=== PATIENT | female | born 1965 | race Caucasian/White ===

== ENCOUNTER 2017-05-06 22:05 | Emergency (ER) | payer OTHER ==
[2017-05-06 22:21] VITALS: BP 144/78; PULSE 59; TEMP 98.4; BMI 25.0
--- NOTE | 2017-05-06 22:44 | PDOC ---
History of Present Illness - General History Source: Patient Exam Limitations: No Limitations - History of Present Illness Initial Comments: 05/06/17 22:54 The patient is a 51 year old female with a significant PMH of diabetes, HTN, hypothyroidism, kidney stones who presents to the emergency department with dysuria, hematuria, and suprapubic pain beginning this afternoon. The patient reports a sudden onset of suprapubic pain followed by dysuria and associated blood in her urine just prior to arrival. She denies fevers or chills. She denies nausea, vomiting, or diarrhea. She reports her last LMP was when she was 47 years old. The patient denies chest pain, shortness of breath, headache, and dizziness. Denies urinary frequency, urgency, or incontinence. Denies hematochezia or constipation. Allergies: NKA Past surgical history: Fibroid removal. Social history: No reported cigarette, alcohol, or drug use. PCP: On [place] [facility]. <Michele Sanford - Last Filed: 05/06/17 22:58> - General History Source: Patient <Jorge Valverde - Last Filed: 05/06/17 23:20> - General Chief Complaint: Hematuria Stated Complaint: BLOOD IN URINE Time Seen by Provider: 05/06/17 22:42 Past History <iMchele Sanford - Last Filed: 05/06/17 22:58> - Past Medical History COPD: No Diabetes: Yes HTN: Yes Thyroid Disease: Yes - Surgical History Abdominal Surgery: Yes ("fibroids") - Immunization History Immunization Up to Date: Yes - Suicide/Smoking/Psychosocial Hx Smoking History: Never smoked Have you smoked in the past 12 months: No Number of Cigarettes Smoked Daily: 2 Information on smoking cessation initiated: No Hx Alcohol Use: No Drug/Substance Use Hx: No Substance Use Type: None <Jorge Valverde - Last Filed: 05/06/17 23:20> - Past Medical History Allergies/Adverse Reactions: Allergies Allergy/AdvReac Type Severity Reaction Status Date / Time No Known Allergies Allergy Verified 12/28/15 15:44 Home Medications: Ambulatory Orders No Home Medications 0 dose .ROUTE UTDICT 02/05/13 Ondansetron [Zofran Odt -] 4 mg SL TID PRN #21 od.tablet 02/06/13 Cyclobenzaprine HCl [Flexeril] 10 mg PO Q8H PRN #15 tablet 01/17/14 traMADol HCL [Ultram] 50 mg PO Q6H PRN #30 tablet 01/17/14 Phenazopyridine HCl [Pyridium -] 100 mg PO PC #6 tablet 05/06/17 levoFLOXacin [Levaquin -] 500 mg PO DAILY #7 tablet 05/06/17 Review of Systems - Review of Systems Able to Perform ROS?: Yes Comments:: 05/06/17 23:00 CONSTITUTIONAL: Absent: fever, chills, diaphoresis, generalized weakness, malaise, loss of appetite HEENT: Absent: rhinorrhea, nasal congestion, throat pain, throat swelling, difficulty swallowing, mouth swelling, ear pain, eye pain, visual Changes CARDIOVASCULAR: Absent: chest pain, syncope, palpitations, irregular heart rate, lightheadedness , peripheral edema RESPIRATORY: Absent: cough, shortness of breath, dyspnea with exertion, orthopnea, wheezing, stridor, hemoptysis GASTROINTESTINAL: Absent: abdominal pain, abdominal distension, nausea, vomiting, diarrhea, constipation, melena, hematochezia GENITOURINARY: (+) Dysuria. (+) Hematuria. (+) Suprapubic pain. Absent: frequency, urgency, hesitancy, flank pain, genital pain MUSCULOSKELETAL: Absent: myalgia, arthralgia, joint swelling SKIN: Absent: rash, itching, pallor HEMATOLOGIC/IMMUNOLOGIC: Absent: easy bleeding, easy bruising, lymphadenopathy, frequent infections ENDOCRINE: Absent: unexplained weight gain, unexplained weight loss, heat intolerance, cold intolerance NEUROLOGIC: Absent: headache, focal weakness or paresthesias, dizziness, unsteady gait, seizure, mental status changes, bladder or bowel incontinence PSYCHIATRIC: Absent: anxiety, depression, suicidal or homicidal ideation, hallucinations. <Michele Sanford - Last Filed: 05/06/17 22:58> *Physical Exam - Vital Signs Last Vital Signs Temp Pulse Resp BP Pulse Ox 98.4 F 59 L 18 144/78 100 05/06/17 22:19 05/06/17 22:19 05/06/17 22:19 05/06/17 22:19 05/06/17 22:19 - Physical Exam Comments: 05/06/17 23:00 GENERAL: Well developed, well nourished. Awake and alert. No acute distress. HEENT: Normocephalic, atraumatic. PERRLA, EOMI. No conjunctival pallor. Sclera are non- icteric. Moist mucous membranes. Oropharynx is clear. NECK: Supple. Full ROM. No JVD. Carotid pulses 2+ and symmetric, without bruits. No thyromegaly. No lymphadenopathy. CARDIOVASCULAR: Regular rate and rhythm. No murmurs, rubs, or gallops. Distal pulses are 2+ and symmetric. PULMONARY: No evidence of respiratory distress. Lungs clear to auscultation bilaterally. No wheezing, rales or rhonchi. ABDOMINAL: (+) Suprapubic tenderness. Soft. Non-distended. No rebound or guarding. No organomegaly. Normoactive bowel sounds. MUSCULOSKELETAL Normal range of motion at all joints. No bony deformities or tenderness. No CVA tenderness. EXTREMITIES: No cyanosis. No clubbing. No edema. No calf tenderness. SKIN: Warm and dry. Normal capillary refill. No rashes. No jaundice. NEUROLOGICAL: Alert, awake, appropriate. Cranial nerves 2-12 intact. No deficits to light touch and temperature in face, upper extremities and lower extremities. No motor deficits in the in face, upper extremities and lower extremities. Normoreflexic in the upper and lower extremities. Normal speech. Toes are downgoing bilaterally. Gait is normal without ataxia. PSYCHIATRIC: Cooperative. Good eye contact. Appropriate mood and affect. <Michele Sanford - Last Filed: 05/06/17 22:58> - Vital Signs Last Vital Signs Temp Pulse Resp BP Pulse Ox 98.4 F 59 L 18 144/78 100 05/06/17 22:19 05/06/17 22:19 05/06/17 22:19 05/06/17 22:19 05/06/17 22:19 <Jorge Valverde - Last Filed: 05/06/17 23:20> Medical Decision Making - Medical Decision Making 05/06/17 23:17 Dr. Valverde: The scribe's documentation has been prepared under my direction and personally reviewed by me in its entirery. I confirm that the note above accurately reflects all work, treatment, procedures, and medical decision making performed by me. <Jorge Valverde - Last Filed: 05/06/17 23:20> *DC/Admit/Observation/Transfer - Attestations Scribe Attestion: 05/06/17 23:00 Documentation prepared by Michele Sanford, acting as biomedical manager for Jorge Valverde DO. <Michele Sanford - Last Filed: 05/06/17 22:58> - Discharge Dispostion Admit: No <Jorge Valverde - Last Filed: 05/06/17 23:20> Diagnosis at time of Disposition: UTI (urinary tract infection) Qualifiers: Urinary tract infection type: acute cystitis Hematuria presence: with hematuria Qualified Code(s): N30.01 - Acute cystitis with hematuria - Discharge Dispostion Disposition: HOME Condition at time of disposition: Stable - Prescriptions Prescriptions: levoFLOXacin [Levaquin -] 500 mg PO DAILY #7 tablet Phenazopyridine HCl [Pyridium -] 100 mg PO PC #6 tablet - Referrals Referrals: Kyaw Naranjo MD., MD [Staff Physician] - - Patient Instructions Printed Discharge Instructions: DI for Urinary Tract Infection (UTI), DI for Acute Cystitis
[2017-05-06] MEDS ORDERED: PHENAZOPYRIDINE HCL 100 MG TABLET (FP) PO STA (22:45)
[2017-05-06] MEDS ORDERED: PHENAZOPYRIDINE HCL 100 MG TABLET (FP) ONE (22:57)
[2017-05-06 23:07] LABS: URINE APPEARANCE CLOUDY; URINE BILIRUBIN NEGATIVE (NEGATIVE); URINE BLOOD 3+ (NEGATIVE); URINE COLOR AMBER; URINE GLUCOSE (UA) NEGATIVE (NEGATIVE); URINE KETONE NEGATIVE (NEGATIVE); URINE NITRITE NEGATIVE (NEGATIVE); URINE UROBILINOGEN NEGATIVE mg/dL (0.2-1.0)
[2017-05-06 23:11] LABS: URINE LEUK ESTERASE 3+ (NEGATIVE); URINE PROTEIN 2+ (NEGATIVE)
[2017-05-06 23:14] LABS: EPI CELLS RARE /HPF (FEW); YEAST MANY
== END 2017-05-06 23:20 | disposition home or self-care (01) ==
LOC: JER 22:05
DX: N30.01 Acute cystitis with hematuria (principal); I10 Essential (primary) hypertension; E11.9 Type 2 diabetes mellitus without complications; E03.9 Hypothyroidism, unspecified; Z87.442 Personal history of urinary calculi
CPT/HCPCS: 81003; 81015; 87086; 87186; 99281-25

== ENCOUNTER 2021-07-31 08:14 | Emergency (ER) | payer OTHER ==
[2021-07-31 08:34] VITALS: BMI 25.0
[2021-07-31] MEDS ORDERED: ACETAMINOPHEN 500 MG TABLET (FP) PO ONE (09:20)
[2021-07-31] MEDS ORDERED: ACETAMINOPHEN 325 MG TABLET (FP) ONE (09:25)
[2021-07-31] MEDS ORDERED: SODIUM CHLORIDE 0.9% 500 ML INFUS.BAG IV ONE (09:37)
[2021-07-31 11:22] VITALS: BP 111/66; PULSE 67; TEMP 99.4
[2021-07-31 11:37] LABS: BASO % 0.5 % (0-2.0); EOS % 0.1 % (0-4.5); HEMATOCRIT 37.4 % (32.4-45.2); HEMOGLOBIN 12.4 GM/dL (10.7-15.3); LYMPH % 7.1 % (8-40); MCH 28.3 pg (25.7-33.7); MCHC 33.1 g/dl (32.0-36.0); MEAN CELL VOLUME 85.8 fl (80-96); MONO % 10.1 % (3.8-10.2); NEUT % 82.2 % (42.8-82.8); PLATELET COUNT 328 10^3/uL (134-434); RBC 4.36 M/mm3 (3.60-5.2); RDW 13.7 % (11.6-15.6); WHITE BLOOD COUNT 13.4 K/mm3 (4.0-10.0)
[2021-07-31 12:01] LABS: ALBUMIN 3.3 g/dl (3.4-5.0); BLOOD UREA NITROGEN 9.5 mg/dL (7-18); CALCIUM 9.1 mg/dL (8.5-10.1)
[2021-07-31 12:04] LABS: CREATININE 0.7 mg/dL (0.55-1.3)
[2021-07-31 12:06] LABS: BILIRUBIN,TOTAL 0.8 mg/dL (0.2-1); TOT PROT 6.9 g/dl (6.4-8.2)
== END 2021-07-31 12:23 | disposition home or self-care (01) ==
LOC: JER 08:14
DX: R53.1 Weakness (principal); Z20.822 Contact with and (suspected) exposure to COVID-19
CPT/HCPCS: 0241U-QW; 36415; 71045-TC-FY; 80053; 85025; 93005; 93010; 99285-25

== ENCOUNTER 2021-11-13 10:01 | Inpatient (IN) | payer OTHER ==
[2021-11-13] MEDS ORDERED: ACETAMINOPHEN 1000 MG/100 ML BAG IVPB ONE (11:43)
[2021-11-13] MEDS ORDERED: MAG HYDROX/AL HYDROX/SIMETH 30 ML UNIT-DOSE CUP PO ONE (11:43)
[2021-11-13] MEDS ORDERED: FAMOTIDINE 20 MG/50 ML IVPB 20 MG/50 ML MG IVPB ONE ×2 (11:43→12:09)
[2021-11-13] MEDS ORDERED: SUCRALFATE 1 GM TABLET (FP) PO ONE (11:43)
[2021-11-13] MEDS ORDERED: SUCRALFATE 1 GM TABLET (FP) ONE (12:08)
[2021-11-13] MEDS ORDERED: ACETAMINOPHEN INJECTION 100 ML IVPB ONE (12:08)
[2021-11-13] MEDS ORDERED: MAG HYDROX/AL HYDROX/SIMETH 30 ML UNIT-DOSE CUP ONE (12:08)
[2021-11-13 12:22] LABS: BASO % 0.4 % (0-2.0); HEMATOCRIT 37.6 % (32.4-45.2); HEMOGLOBIN 12.1 GM/dL (10.7-15.3); MCH 27.2 pg (25.7-33.7); MCHC 32.2 g/dl (32.0-36.0); MEAN CELL VOLUME 84.5 fl (80-96); MEAN PLT VOLUME 7.6 fl (7.5-11.1); MONO % 9.3 % (3.8-10.2); NEUT % 84.3 % (42.8-82.8); PLATELET COUNT 357 10^3/uL (134-434); RBC 4.44 M/mm3 (3.60-5.2); RDW 15.7 % (11.6-15.6)
[2021-11-13 12:46] LABS: CALCIUM 9.1 mg/dL (8.5-10.1)
[2021-11-13 12:47] LABS: ALBUMIN 3.3 g/dl (3.4-5.0); BLOOD UREA NITROGEN 7.4 mg/dL (7-18)
[2021-11-13 12:50] LABS: CREATININE 0.8 mg/dL (0.55-1.3)
[2021-11-13 12:51] LABS: BILIRUBIN,TOTAL 1.1 mg/dL (0.2-1)
[2021-11-13 12:52] LABS: TOT PROT 7.4 g/dl (6.4-8.2)
[2021-11-13 15:18] LABS: EPI CELLS 2 /uL (0-25.1); HYALINE CASTS 11 /uL (0-3.1); PH,URINE 6.5 (5.0-8.0); URINE APPEARANCE CLEAR; URINE BACTERIA >9,000 /uL (0-1359); URINE BILIRUBIN NEGATIVE (NEGATIVE); URINE COLOR YELLOW; URINE GLUCOSE (UA) NEGATIVE (NEGATIVE); URINE KETONE 2+ (NEGATIVE); URINE LEUK ESTERASE 2+ (NEGATIVE); URINE NITRITE POSITIVE (NEGATIVE); URINE PROTEIN TRACE (NEGATIVE); URINE RBC 45 /uL (0-23.9); URINE WBC 773 /uL (0-25.8)
[2021-11-13] MEDS ORDERED: CEFTRIAXONE 1 GM in DEXTROSE 5%-WATER - 50 ML IVPB ONE (15:37)
[2021-11-13] MEDS ORDERED: CEFTRIAXONE 1 GM/50 ML BAG ONE (16:14)
[2021-11-13] MEDS ORDERED: ONDANSETRON 4 MG/2 ML VIAL IVPUSH PRN (18:11)
[2021-11-13] MEDS ORDERED: SODIUM CHLORIDE 2,041 ML IV ONE (18:46)
[2021-11-13] MEDS ORDERED: ACETAMINOPHEN 325 MG TABLET (FP) ONE (21:12)
[2021-11-13] MEDS: ACETAMINOPHEN 325 MG TABLET (FP) PO PRN (21:28)
[2021-11-14 00:25] VITALS: BMI 26.8
[2021-11-14] MEDS: SODIUM CHLORIDE 1,000 ML IV SCH ×3 (08:50→22:01)
[2021-11-14] MEDS: KETOROLAC TROMETHAMINE 15 MG/ML VIAL IVPUSH PRN ×2 (08:51→19:59)
[2021-11-14] MEDS: ENOXAPARIN NA (PORCINE) 40 MG/0.4 ML DISP.SYRIN SQ SCH (09:53)
[2021-11-14] MEDS ORDERED: CEFTRIAXONE 1 GM in DEXTROSE 5%-WATER - 50 ML IVPB SCH (10:00)
[2021-11-14] MEDS: LEVOTHYROXINE NA 50 MCG TABLET (FP) PO SCH (11:31)
[2021-11-14] MEDS: PANTOPRAZOLE 40 MG TABLET PO SCH (11:32)
[2021-11-14 11:43] LABS: BASO % 0.3 % (0-2.0); EOS % 0.1 % (0-4.5); HEMATOCRIT 31.9 % (32.4-45.2); LYMPH % 10.7 % (8-40); MCH 29.1 pg (25.7-33.7); MCHC 34.4 g/dl (32.0-36.0); MEAN CELL VOLUME 84.7 fl (80-96); MEAN PLT VOLUME 7.8 fl (7.5-11.1); MONO % 11.5 % (3.8-10.2); NEUT % 77.4 % (42.8-82.8); PLATELET COUNT 293 10^3/uL (134-434); RBC 3.76 M/mm3 (3.60-5.2); RDW 15.5 % (11.6-15.6); WHITE BLOOD COUNT 10.9 K/mm3 (4.0-10.0)
[2021-11-14 12:17] LABS: ALBUMIN 2.7 g/dl (3.4-5.0); CALCIUM 8.2 mg/dL (8.5-10.1); MAGNESIUM 2.3 mg/dL (1.8-2.4)
[2021-11-14 12:20] LABS: CREATININE 0.7 mg/dL (0.55-1.3); PHOSPHOROUS 1.5 mg/dL (2.5-4.9)
[2021-11-14 12:22] LABS: BILIRUBIN,TOTAL 0.5 mg/dL (0.2-1); TOT PROT 6.3 g/dl (6.4-8.2)
[2021-11-15] MEDS: ACETAMINOPHEN 325 MG TABLET (FP) PO PRN ×2 (04:05→10:30)
[2021-11-15] MEDS: LEVOTHYROXINE NA 50 MCG TABLET (FP) PO SCH (06:23)
[2021-11-15] MEDS ORDERED: MEROPENEM 1 GM in DEXTROSE 5%-WATER 100 ML IVPB ONE (10:00)
[2021-11-15] MEDS: ENOXAPARIN NA (PORCINE) 40 MG/0.4 ML DISP.SYRIN SQ SCH (10:27)
[2021-11-15] MEDS: PANTOPRAZOLE 40 MG TABLET PO SCH (10:30)
[2021-11-15] MEDS: SODIUM CHLORIDE 1,000 ML IV SCH (10:31)
[2021-11-15 11:50] LABS: BASO % 0.5 % (0-2.0); EOS % 0.9 % (0-4.5); HEMOGLOBIN 10.8 GM/dL (10.7-15.3); MCH 27.5 pg (25.7-33.7); MCHC 32.7 g/dl (32.0-36.0); MEAN CELL VOLUME 84.3 fl (80-96); MONO % 12.6 % (3.8-10.2); PLATELET COUNT 337 10^3/uL (134-434); RBC 3.91 M/mm3 (3.60-5.2); RDW 15.7 % (11.6-15.6); WHITE BLOOD COUNT 7.3 K/mm3 (4.0-10.0)
[2021-11-15 12:32] LABS: CALCIUM 8.9 mg/dL (8.5-10.1)
[2021-11-15 12:33] LABS: ALBUMIN 2.8 g/dl (3.4-5.0); MAGNESIUM 2.3 mg/dL (1.8-2.4)
[2021-11-15 12:36] LABS: CREATININE 0.7 mg/dL (0.55-1.3)
[2021-11-15 12:37] LABS: TOT PROT 6.2 g/dl (6.4-8.2)
[2021-11-15 12:38] LABS: BILIRUBIN,TOTAL 0.3 mg/dL (0.2-1)
[2021-11-15] MEDS: NAPH,MB-DB/K PH,MBDB POWDER PACKET PO SCH ×2 (13:38→21:09)
[2021-11-15] MEDS: MEROPENEM 1 GM in DEXTROSE 5%-WATER 100 ML IVPB SCH (17:34)
[2021-11-15] MEDS ORDERED: PIPERACILLIN/TAZOB 3.375 GM 3.375 GM in DEXTROSE 5%-WATER - 50 ML IVPB SCH (18:00)
[2021-11-15] MEDS ORDERED: MAG HYDROX/AL HYDROX/SIMETH 30 ML UNIT-DOSE CUP PO PRN (18:04)
[2021-11-15 19:56] VITALS: RESP 18
[2021-11-15] MEDS: KETOROLAC TROMETHAMINE 15 MG/ML VIAL IVPUSH PRN (21:40)
[2021-11-16] MEDS: MEROPENEM 1 GM in DEXTROSE 5%-WATER 100 ML IVPB SCH ×3 (01:03→17:28)
[2021-11-16] MEDS: LEVOTHYROXINE NA 50 MCG TABLET (FP) PO SCH (06:30)
[2021-11-16] MEDS ORDERED: SIMETHICONE 80 MG TAB.CHEW (FP) PO PRN (10:05)
[2021-11-16] MEDS: ENOXAPARIN NA (PORCINE) 40 MG/0.4 ML DISP.SYRIN SQ SCH (10:07)
[2021-11-16] MEDS: PANTOPRAZOLE 40 MG TABLET PO SCH (10:08)
[2021-11-16] MEDS: ACETAMINOPHEN 325 MG TABLET (FP) PO PRN (10:10)
[2021-11-16 11:21] LABS: BASO % 0.6 % (0-2.0); EOS % 1.5 % (0-4.5); HEMATOCRIT 32.8 % (32.4-45.2); HEMOGLOBIN 11.5 GM/dL (10.7-15.3); LYMPH % 21.5 % (8-40); MCH 29.4 pg (25.7-33.7); MEAN CELL VOLUME 84.1 fl (80-96); MEAN PLT VOLUME 7.3 fl (7.5-11.1); MONO % 9.9 % (3.8-10.2); NEUT % 66.5 % (42.8-82.8); PLATELET COUNT 368 10^3/uL (134-434); RDW 15.5 % (11.6-15.6); WHITE BLOOD COUNT 6.7 K/mm3 (4.0-10.0)
[2021-11-16 11:39] LABS: CALCIUM 9.1 mg/dL (8.5-10.1); MAGNESIUM 2.3 mg/dL (1.8-2.4)
[2021-11-16 11:40] LABS: BLOOD UREA NITROGEN 6.5 mg/dL (7-18)
[2021-11-16 11:42] LABS: CREATININE 0.6 mg/dL (0.55-1.3)
[2021-11-16 11:44] LABS: BILIRUBIN,TOTAL 0.3 mg/dL (0.2-1)
[2021-11-17] MEDS: LEVOTHYROXINE NA 50 MCG TABLET (FP) PO SCH (06:22)
[2021-11-17 10:19] LABS: BASO % 0.8 % (0-2.0); EOS % 1.7 % (0-4.5); HEMATOCRIT 37.5 % (32.4-45.2); HEMOGLOBIN 12.4 GM/dL (10.7-15.3); LYMPH % 24.1 % (8-40); MCH 27.8 pg (25.7-33.7); MEAN CELL VOLUME 84.3 fl (80-96); MONO % 8.1 % (3.8-10.2); NEUT % 65.3 % (42.8-82.8); PLATELET COUNT 468 10^3/uL (134-434); RBC 4.45 M/mm3 (3.60-5.2); RDW 15.4 % (11.6-15.6); WHITE BLOOD COUNT 6.9 K/mm3 (4.0-10.0)
[2021-11-17] MEDS: ERTAPENEM SODIUM 1 GM in SODIUM CHLORIDE 50 ML IVPB SCH (10:28)
[2021-11-17] MEDS: PANTOPRAZOLE 40 MG TABLET PO SCH (10:28)
[2021-11-17] MEDS: ENOXAPARIN NA (PORCINE) 40 MG/0.4 ML DISP.SYRIN SQ SCH (10:28)
[2021-11-17 10:44] LABS: CALCIUM 9.2 mg/dL (8.5-10.1)
[2021-11-17 10:45] LABS: ALBUMIN 3.2 g/dl (3.4-5.0); BLOOD UREA NITROGEN 8.5 mg/dL (7-18); MAGNESIUM 2.3 mg/dL (1.8-2.4)
[2021-11-17 10:48] LABS: CREATININE 0.7 mg/dL (0.55-1.3)
[2021-11-17 10:49] LABS: BILIRUBIN,TOTAL 0.8 mg/dL (0.2-1)
[2021-11-17 10:50] LABS: TOT PROT 7.3 g/dl (6.4-8.2)
[2021-11-17] MEDS: ACETAMINOPHEN 325 MG TABLET (FP) PO PRN (15:53)
[2021-11-18] MEDS: LEVOTHYROXINE NA 50 MCG TABLET (FP) PO SCH (06:44)
[2021-11-18] MEDS: PANTOPRAZOLE 40 MG TABLET PO SCH (09:25)
[2021-11-18] MEDS: ERTAPENEM SODIUM 1 GM in SODIUM CHLORIDE 50 ML IVPB SCH (09:25)
[2021-11-18] MEDS: ENOXAPARIN NA (PORCINE) 40 MG/0.4 ML DISP.SYRIN SQ SCH (09:25)
[2021-11-19] MEDS: LEVOTHYROXINE NA 50 MCG TABLET (FP) PO SCH (06:34)
[2021-11-19] MEDS: ERTAPENEM SODIUM 1 GM in SODIUM CHLORIDE 50 ML IVPB SCH ×2 (10:37→11:47)
[2021-11-19] MEDS: ENOXAPARIN NA (PORCINE) 40 MG/0.4 ML DISP.SYRIN SQ SCH (10:37)
[2021-11-19] MEDS: PANTOPRAZOLE 40 MG TABLET PO SCH (10:37)
[2021-11-19 14:18] VITALS: BP 130/66; PULSE 55; TEMP 97.9
== END 2021-11-19 14:50 | disposition home or self-care (01) | DRG 720 ==
LOC: JER 10:01 → JERBED 19:00 → J6S 23:42
PROVIDERS: ADMIT Internal Medicine; ATTEND Nurse Practitioner Acute Care
DX: A41.9 Sepsis, unspecified organism (principal); N10 Acute pyelonephritis; E03.9 Hypothyroidism, unspecified; E78.5 Hyperlipidemia, unspecified; K21.9 Gastro-esophageal reflux disease without esophagitis; B96.1 Klebsiella pneumoniae [K. pneumoniae] as the cause of diseases classified elsewhere
CPT/HCPCS: 0241U-QW; 36415; 71046-TC-FY; 74177-TC; 80053; 81003; 83690; 83735; 84100; 84484; 85025; 87040; 87086; 87186; 93005; 93010; 99291; Q9967

== ENCOUNTER 2021-11-20 10:48 | Day surgery (SDC) | payer OTHER ==
[2021-11-20] MEDS ORDERED: ERTAPENEM SODIUM 1 GM in SODIUM CHLORIDE 50 ML IVPB ONE (11:30)
[2021-11-20 12:44] VITALS: BP 130/74; PULSE 89; RESP 16; TEMP 98.2
== END 2021-11-20 13:30 | disposition home or self-care (01) ==
LOC: FINFUSION 10:48 → FM/S 10:50 → FINFUSION 13:30
PROVIDERS: ATTEND Internal Medicine Infectious Disease
DX: N12 Tubulo-interstitial nephritis, not specified as acute or chronic (principal)
CPT/HCPCS: 96365

== ENCOUNTER 2021-11-21 10:21 | Day surgery (SDC) | payer OTHER ==
[2021-11-21] MEDS ORDERED: ERTAPENEM SODIUM 1 GM in SODIUM CHLORIDE 50 ML IVPB ONE (11:30)
[2021-11-21 11:56] VITALS: BP 122/63; PULSE 53; RESP 18; TEMP 98.1
== END 2021-11-21 11:57 | disposition home or self-care (01) ==
LOC: FINFUSION 10:21 → FM/S 10:22 → FINFUSION 11:57
PROVIDERS: ATTEND Internal Medicine Infectious Disease
DX: N12 Tubulo-interstitial nephritis, not specified as acute or chronic (principal)
CPT/HCPCS: 96365

== ENCOUNTER 2021-11-22 10:40 | Day surgery (SDC) | payer OTHER ==
[2021-11-22] MEDS ORDERED: ERTAPENEM SODIUM 1 GM in SODIUM CHLORIDE 50 ML IVPB ONE (11:30)
[2021-11-22 11:45] VITALS: BP 149/75; PULSE 56; RESP 17; TEMP 98.9
== END 2021-11-22 11:50 | disposition home or self-care (01) ==
LOC: FINFUSION 10:40 → FM/S 10:41 → FINFUSION 11:50
PROVIDERS: ATTEND Internal Medicine Infectious Disease
DX: N12 Tubulo-interstitial nephritis, not specified as acute or chronic (principal)
CPT/HCPCS: 96365

== ENCOUNTER 2021-11-23 10:46 | Day surgery (SDC) | payer OTHER ==
[2021-11-23] MEDS ORDERED: ERTAPENEM SODIUM 1 GM in SODIUM CHLORIDE 50 ML IVPB ONE (11:00)
[2021-11-23] MEDS ORDERED: ERTAPENEM SODIUM 1 GM VIAL ONE (11:07)
[2021-11-23 11:45] VITALS: BP 120/80; PULSE 68; RESP 20; TEMP 98
== END 2021-11-23 16:06 | disposition home or self-care (01) ==
LOC: FINFUSION 10:46 → FM/S 10:46 → FINFUSION 16:06
PROVIDERS: ATTEND Internal Medicine Infectious Disease
DX: N12 Tubulo-interstitial nephritis, not specified as acute or chronic (principal)
CPT/HCPCS: 96365

== ENCOUNTER 2021-11-24 10:32 | Day surgery (SDC) | payer OTHER ==
[2021-11-24] MEDS ORDERED: ERTAPENEM SODIUM 1 GM VIAL IVPB SCH (10:45)
[2021-11-24 11:27] VITALS: BP 147/72; PULSE 54; RESP 18; TEMP 98.6
== END 2021-11-24 11:30 | disposition home or self-care (01) ==
LOC: FINFUSION 10:32 → FM/S 10:32 → FINFUSION 11:30
PROVIDERS: ATTEND Internal Medicine Infectious Disease
DX: N12 Tubulo-interstitial nephritis, not specified as acute or chronic (principal)
CPT/HCPCS: 96365

== ENCOUNTER 2021-11-25 10:23 | Day surgery (SDC) | payer OTHER ==
[2021-11-25 11:11] VITALS: BP 134/78; RESP 18; TEMP 98.2
[2021-11-25] MEDS ORDERED: ERTAPENEM SODIUM 1 GM in SODIUM CHLORIDE 50 ML IVPB ONE (11:30)
[2021-11-25 12:00] VITALS: PULSE 62
== END 2021-11-25 12:01 | disposition home or self-care (01) ==
LOC: FINFUSION 10:23 → FM/S 10:27 → FINFUSION 12:01
PROVIDERS: ATTEND Internal Medicine Infectious Disease
DX: N12 Tubulo-interstitial nephritis, not specified as acute or chronic (principal)
CPT/HCPCS: 96365

== ENCOUNTER 2022-02-12 10:44 | Inpatient (IN) | payer OTHER ==
[2022-02-12 10:55] VITALS: RESP 18
[2022-02-12] MEDS ORDERED: ONDANSETRON 4 MG/2 ML VIAL IVPUSH ONE (12:15)
[2022-02-12] MEDS ORDERED: morphine CARPU-JECT 4 MG/1 ML DISP.SYRIN IVPUSH ONE (12:15)
[2022-02-12] MEDS ORDERED: SODIUM CHLORIDE 0.9% 500 ML INFUS.BAG IV ONE (12:15)
[2022-02-12] MEDS ORDERED: ONDANSETRON 4 MG/2 ML VIAL ONE (12:46)
[2022-02-12] MEDS ORDERED: morphine SULFATE 4 MG/ML VIAL ONE (12:46)
[2022-02-12 13:38] LABS: BASO % 0.5 % (0-2.0); EOS % 0.3 % (0-4.5); HEMATOCRIT 38.5 % (32.4-45.2); HEMOGLOBIN 12.6 GM/dL (10.7-15.3); LYMPH % 5.1 % (8-40); MCH 27.9 pg (25.7-33.7); MCHC 32.8 g/dl (32.0-36.0); MEAN CELL VOLUME 85.1 fl (80-96); MEAN PLT VOLUME 8.3 fl (7.5-11.1); MONO % 4.5 % (3.8-10.2); NEUT % 89.6 % (42.8-82.8); PLATELET COUNT 339 10^3/uL (134-434); RBC 4.52 M/mm3 (3.60-5.2); RDW 15.5 % (11.6-15.6); WHITE BLOOD COUNT 14.5 K/mm3 (4.0-10.0)
[2022-02-12 14:08] LABS: CALCIUM 9.2 mg/dL (8.5-10.1)
[2022-02-12 14:09] LABS: ALBUMIN 3.5 g/dl (3.4-5.0); BLOOD UREA NITROGEN 11.3 mg/dL (7-18)
[2022-02-12 14:12] LABS: CREATININE 0.9 mg/dL (0.55-1.3)
[2022-02-12 14:13] LABS: BILIRUBIN,TOTAL 0.8 mg/dL (0.2-1)
[2022-02-12 15:35] LABS: PH,URINE 7.5 (5.0-8.0); URINE APPEARANCE CLOUDY; URINE BILIRUBIN NEGATIVE (NEGATIVE); URINE COLOR YELLOW; URINE GLUCOSE (UA) NEGATIVE (NEGATIVE); URINE KETONE NEGATIVE (NEGATIVE); URINE LEUK ESTERASE 3+ (NEGATIVE); URINE NITRITE NEGATIVE (NEGATIVE); URINE PROTEIN 1+ (NEGATIVE); URINE UROBILINOGEN 0.2 mg/dL (0.2-1.0)
[2022-02-12 15:42] LABS: EPI CELLS 4 /uL (0-25.1); HYALINE CASTS 4 /uL (0-3.1); URINE BACTERIA 19538 /uL (0-1359); URINE RBC 23 /uL (0-23.9); URINE WBC 1214 /uL (0-25.8)
[2022-02-12] MEDS ORDERED: CEFTRIAXONE 1,000 MG in DEXTROSE 5%-WATER - 50 ML IVPB ONE (15:45)
[2022-02-12] MEDS ORDERED: ACETAMINOPHEN 1000 MG/100 ML BAG IVPB ONE (15:45)
[2022-02-12] MEDS ORDERED: ERTAPENEM SODIUM 1 GM in SODIUM CHLORIDE 50 ML IVPB ONE (15:48)
[2022-02-12] MEDS ORDERED: ACETAMINOPHEN INJECTION 100 ML IVPB ONE (15:58)
[2022-02-12] MEDS ORDERED: METOCLOPRAMIDE HCL INJECTION 10 MG/2 ML VIAL IVPUSH ONE (17:17)
[2022-02-12] MEDS ORDERED: METOCLOPRAMIDE HCL INJECTION 10 MG/2 ML VIAL ONE (17:19)
[2022-02-12] MEDS ORDERED: morphine CARPU-JECT 2 MG/1 ML DISP.SYRIN IVPUSH PRN (17:38)
[2022-02-12] MEDS ORDERED: ONDANSETRON 4 MG/2 ML VIAL IVPUSH PRN (17:39)
[2022-02-13] MEDS: SODIUM CHLORIDE 1,000 ML IV SCH ×2 (02:55→21:03)
[2022-02-13] MEDS: ACETAMINOPHEN 1000 MG/100 ML BAG IVPB PRN ×2 (02:56→10:55)
[2022-02-13 08:36] VITALS: BMI 26.2
[2022-02-13] MEDS ORDERED: ERTAPENEM SODIUM 1 GM in SODIUM CHLORIDE 50 ML IVPB SCH (10:00)
[2022-02-13] MEDS ORDERED: FLU VACC QS2022-23(6MOS UP)/PF 60 MCG/0.5 ML SYRINGE IM ONE (10:00)
[2022-02-13 10:35] LABS: BASO % 0.2 % (0-2.0); HEMATOCRIT 35.4 % (32.4-45.2); HEMOGLOBIN 11.4 GM/dL (10.7-15.3); LYMPH % 3.2 % (8-40); MCH 27.4 pg (25.7-33.7); MCHC 32.2 g/dl (32.0-36.0); MEAN CELL VOLUME 85.1 fl (80-96); MEAN PLT VOLUME 7.8 fl (7.5-11.1); MONO % 8.2 % (3.8-10.2); NEUT % 88.4 % (42.8-82.8); PLATELET COUNT 280 10^3/uL (134-434); RBC 4.16 M/mm3 (3.60-5.2); RDW 15.7 % (11.6-15.6); WHITE BLOOD COUNT 17.9 K/mm3 (4.0-10.0)
[2022-02-13] MEDS: ENOXAPARIN NA (PORCINE) 40 MG/0.4 ML DISP.SYRIN SQ SCH (10:57)
[2022-02-13 11:06] LABS: CALCIUM 8.4 mg/dL (8.5-10.1)
[2022-02-13 11:07] LABS: ALBUMIN 2.8 g/dl (3.4-5.0); BLOOD UREA NITROGEN 8.9 mg/dL (7-18)
[2022-02-13 11:10] LABS: BILIRUBIN,TOTAL 1.2 mg/dL (0.2-1); CREATININE 0.9 mg/dL (0.55-1.3)
[2022-02-13 11:11] LABS: TOT PROT 6.1 g/dl (6.4-8.2)
[2022-02-13] MEDS ORDERED: ACETAMINOPHEN 1000 MG/100 ML BAG IVPB PRN (18:10)
[2022-02-14] MEDS: SODIUM CHLORIDE 1,000 ML IV SCH ×2 (04:56→18:53)
[2022-02-14 09:56] LABS: BASO % 0.4 % (0-2.0); EOS % 0.2 % (0-4.5); HEMATOCRIT 34.1 % (32.4-45.2); HEMOGLOBIN 10.9 GM/dL (10.7-15.3); LYMPH % 11.1 % (8-40); MCH 27.4 pg (25.7-33.7); MCHC 31.8 g/dl (32.0-36.0); MEAN CELL VOLUME 86.2 fl (80-96); MEAN PLT VOLUME 8.3 fl (7.5-11.1); MONO % 9.3 % (3.8-10.2); PLATELET COUNT 282 10^3/uL (134-434); RBC 3.96 M/mm3 (3.60-5.2); RDW 15.3 % (11.6-15.6); WHITE BLOOD COUNT 11.5 K/mm3 (4.0-10.0)
[2022-02-14 10:16] LABS: ALBUMIN 2.8 g/dl (3.4-5.0); CALCIUM 8.6 mg/dL (8.5-10.1)
[2022-02-14 10:20] LABS: CREATININE 0.8 mg/dL (0.55-1.3)
[2022-02-14 10:21] LABS: BILIRUBIN,TOTAL 0.8 mg/dL (0.2-1)
[2022-02-14 10:24] LABS: PHOSPHOROUS 1.7 mg/dL (2.5-4.9)
[2022-02-14 10:25] LABS: TOT PROT 6.1 g/dl (6.4-8.2)
[2022-02-14] MEDS: ENOXAPARIN NA (PORCINE) 40 MG/0.4 ML DISP.SYRIN SQ SCH (10:28)
[2022-02-14] MEDS: CEFTRIAXONE 1 GM in DEXTROSE 5%-WATER - 50 ML IVPB SCH (10:42)
[2022-02-14] MEDS ORDERED: INSULIN (NOVOLOG) ASPART 100 UNITS/ML 10ML VIAL ONE (10:55)
[2022-02-14] MEDS ORDERED: NAPH,MB-DB/K PH,MBDB POWDER PACKET PO ONE (17:35)
[2022-02-15] MEDS: SODIUM CHLORIDE 1,000 ML IV SCH (01:30)
[2022-02-15 09:32] LABS: HEMATOCRIT 32.9 % (32.4-45.2); HEMOGLOBIN 10.7 GM/dL (10.7-15.3); MCH 27.7 pg (25.7-33.7); MCHC 32.4 g/dl (32.0-36.0); MEAN CELL VOLUME 85.7 fl (80-96); MEAN PLT VOLUME 7.9 fl (7.5-11.1); PLATELET COUNT 276 10^3/uL (134-434); RBC 3.84 M/mm3 (3.60-5.2); RDW 15.8 % (11.6-15.6); WHITE BLOOD COUNT 7.1 K/mm3 (4.0-10.0)
[2022-02-15 10:05] LABS: ALBUMIN 2.7 g/dl (3.4-5.0); CALCIUM 8.7 mg/dL (8.5-10.1)
[2022-02-15 10:06] LABS: BLOOD UREA NITROGEN 8.4 mg/dL (7-18)
[2022-02-15 10:08] LABS: CREATININE 0.7 mg/dL (0.55-1.3); PHOSPHOROUS 1.6 mg/dL (2.5-4.9)
[2022-02-15 10:10] LABS: TOT PROT 6.1 g/dl (6.4-8.2)
[2022-02-15] MEDS: CEFTRIAXONE 1 GM in DEXTROSE 5%-WATER - 50 ML IVPB SCH (11:50)
[2022-02-15] MEDS: ENOXAPARIN NA (PORCINE) 40 MG/0.4 ML DISP.SYRIN SQ SCH (11:51)
[2022-02-15 15:22] VITALS: BP 161/82; PULSE 63; TEMP 98.7
== END 2022-02-15 17:30 | disposition home or self-care (01) | DRG 463 ==
LOC: JER 10:44 → JERBED 16:11 → J7W 02-13 02:49
PROVIDERS: ADMIT Internal Medicine; ATTEND Internal Medicine
DX: N28.85 Pyeloureteritis cystica (principal); U07.1 COVID-19; E03.9 Hypothyroidism, unspecified; N28.89 Other specified disorders of kidney and ureter; K21.9 Gastro-esophageal reflux disease without esophagitis
CPT/HCPCS: 36415; 74177-TC; 80053; 81003; 83605; 83690; 83735; 84100; 85025; 85027; 87040; 87086; 87186; 93005; 93010; 99285-25; C9803-CS; U0003; U0005

== ENCOUNTER 2022-04-30 03:56 | Day surgery (SDC) | payer OTHER ==
[2022-04-25 13:50] VITALS: BMI 25.0
[2022-04-30] MEDS ORDERED: GENTAMICIN SO4 80 MG/2 ML VIAL ONE (08:26)
[2022-04-30] MEDS ORDERED: MIDAZOLAM HCL 2 MG/2 ML SINGLE DOSE VIAL ONE (08:31)
[2022-04-30] MEDS ORDERED: GENTAMICIN SO4 80 MG/2 ML VIAL IVPB ONE (08:37)
[2022-04-30 11:13] VITALS: RESP 18; TEMP 97.5
[2022-04-30 12:25] VITALS: BP 130/65; PULSE 56
== END 2022-04-30 12:30 | disposition home or self-care (01) ==
LOC: JASU-SURG 03:56
PROVIDERS: ATTEND Urology
PROC: 0TF3XZZ Fragmentation in Right Kidney Pelvis, External Approach (ICD-10-PCS; principal; 2022-04-30 08:45)
DX: N20.0 Calculus of kidney (principal)
CPT/HCPCS: 94760